=== PATIENT | female | born 1965 | race Two or more races ===

== ENCOUNTER 2025-04-11 10:27 | Emergency (ER) | payer OTHER, MEDICAID ==
[~2025-04-11] VITALS: Ht 149.9 cm; Wt 135.2 kg
[2025-04-11 11:27] LABS: BASOPHILS % (AUTO) 0.2 % (0.0-2.0); EOSINOPHILS # (AUTO) 0.1 K/uL (0.0-0.7); EOSINOPHILS % (AUTO) 0.5 % (0.0-6.0); HEMATOCRIT 39 % (33-45); HEMOGLOBIN 12.9 g/dL (11.5-14.8); LYMPHOCYTES % (AUTO) 17.6 % (20.0-44.0); MEAN CORPUSCULAR HEMOGLOBIN 29 PG (26.0-33.0); MEAN CORPUSCULAR HGB CONC 33 g/dl (31.0-36.0); MEAN CORPUSCULAR VOLUME 88 fL (82-100); MONOCYTES # (AUTO) 0.8 K/uL (0.1-1.30); MONOCYTES % (AUTO) 7.2 % (2.0-12.0); NEUTROPHILS # (AUTO) 8.3 K/uL (1.8-8.9); NEUTROPHILS % (AUTO) 74.5 % (43.0-81.0); PLATELET COUNT (AUTO) 228 K/uL (150-450); RED BLOOD CELL COUNT(AUTO) 4.45 MIL/uL (4.0-5.2); RED CELL DISTRIBUTION WIDTH 14.1 % (11.5-15.0); WHITE BLOOD COUNT (AUTO) 11.1 K/uL (4.3-11.0)
[2025-04-11 11:30] LABS: CALCIUM, SERUM 9.9 mg/dL (8.5-10.1); POTASSIUM 4.1 mmol/L (3.5-5.1)
[2025-04-11] MEDS: TRAMADOL HCL 50 MG TABLET PO ONE (11:30)
[2025-04-11] MEDS: KETOROLAC TROMETHAMINE 15 MG/ML VIAL IM ONE (11:30)
[2025-04-11] MEDS ORDERED: KETOROLAC TROMETHAMINE INJ 30 MG/ML VIAL ONE (11:34)
[2025-04-11] MEDS ORDERED: TRAMADOL HCL 50 MG TABLET ONE (11:34)
[2025-04-11] MEDS ORDERED: LIDO30AD10 TP (13:10)
[2025-04-11] MEDS ORDERED: KETO10TA2 PO (13:10)
[2025-04-11] MEDS ORDERED: CYCL5TAB PO (13:10)
[2025-04-11 14:00] VITALS: BP 146/94; TEMP 97.9; O2SAT 98
== END 2025-04-11 14:01 | disposition home or self-care (01) ==
LOC: ER 10:44
DX: R10.84 Generalized abdominal pain (principal); M54.50 Low back pain, unspecified; I10 Essential (primary) hypertension; E11.9 Type 2 diabetes mellitus without complications; N20.0 Calculus of kidney; Z90.49 Acquired absence of other specified parts of digestive tract; Z79.899 Other long term (current) drug therapy
CPT/HCPCS: 99285; 71250; 96372; 74176; 85025; 80048; 36415; J1885